=== PATIENT | male | born 1990 | race Caucasian/White ===

== ENCOUNTER 2018-12-08 17:50 | Emergency (ER) | payer OTHER, MEDICAID ==
[2018-12-08 20:57] LABS: ADD MAN DIFF? NO
[2018-12-08 20:59] LABS: WHITE BLOOD COUNT 12.6 10^3/ul (4.8-10.8)
[2018-12-08 20:59] LABS: BASOPHIL # 0.1 10^3/ul (0.0-0.1); BASOPHILS % 0.6 % (0.0-2.0); EOSINOPHILS # 0.3 10^3/ul (0.0-0.5); HEMATOCRIT 45.7 % (42.0-52.0); HEMOGLOBIN 15.4 g/dl (14.0-18.0); LYMPHOCYTES # 2.7 10^3/ul (0.8-2.9); LYMPHOCYTES % 21.5 % (15.0-51.0); MEAN CORPUSCULAR HEMOGLOBIN 30.1 pg (29.0-33.0); MEAN CORPUSCULAR HGB CONC 33.7 g/dl (32.0-37.0); MEAN CORPUSCULAR VOLUME 89.4 fl (82.0-101.0); MEAN PLATELET VOLUME 9.7 fl (7.4-10.4); MONOCYTE # 0.8 10^3/ul (0.3-0.9); MONOCYTES % 6.5 % (0.0-11.0); NEUTROPHIL # 8.7 10^3/ul (1.6-7.5); NEUTROPHILS % 68.8 % (39.0-77.0); PLATELET COUNT 252 10^3/UL (140-415); RED BLOOD COUNT 5.11 10^6/ul (4.70-6.10); RED CELL DISTRIBUTION WIDTH 13.1 % (11.5-14.5)
[2018-12-08] MEDS: ONDANSETRON 4 MG INJ IV (21:07)
[2018-12-08] MEDS: morphine 4 MG/ML VIAL IV (21:08)
[2018-12-08] MEDS: SOD CHLORIDE 0.9% 1,000 ML IV (21:08)
[2018-12-08 21:18] LABS: ALANINE AMINOTRANSFERASE 49 IU/L (13-69); ALBUMIN/GLOBULIN RATIO 1.14; ALKALINE PHOSPHATASE 77 IU/L (42-121); ANION GAP 5 (5-13); ASPARTATE AMINO TRANSFERASE 26 IU/L (15-46); BILIRUBIN,INDIRECT 0.6 mg/dl (0-1.1); BILIRUBIN,TOTAL 0.6 mg/dl (0.2-1.3); BLOOD UREA NITROGEN 8 mg/dl (7-20); CARBON DIOXIDE 30 mmol/L (21-31); CHLORIDE 105 mmol/L (97-110); CREATININE 0.87 mg/dl (0.61-1.24); Estimated GFR > 60 mL/min (>60); GLUCOSE 93 mg/dl (70-220); POTASSIUM 3.9 mmol/L (3.5-5.1); SODIUM 140 mmol/L (135-144); TOTAL PROTEIN 7.5 g/dl (6.1-8.1)
[2018-12-08 21:40] LABS: AMYLASE 46 U/L (11-123)
[2018-12-08 21:40] LABS: LIPASE 29 U/L (23-300)
[2018-12-08 22:15] LABS: LACTIC ACID 0.9 mmol/L (0.5-2.0)
[2018-12-08 22:38] LABS: ADD UMIC YES; UR ASCORBIC ACID NEGATIVE (NEGATIVE); UR BILIRUBIN (Dip) NEGATIVE (NEGATIVE); UR BLOOD (Dip) 1+ mg/dL (NEGATIVE); UR CLARITY CLEAR (CLEAR); UR COLOR AMBER (YELLOW); UR GLUCOSE (Dip) NEGATIVE (NEGATIVE); UR KETONES (Dip) NEGATIVE (NEGATIVE); UR LEUKOCYTE ESTERASE (Dip) NEGATIVE Leu/ul (NEGATIVE); UR NITRITE (Dip) NEGATIVE (NEGATIVE); UR RBC 13 /HPF (0-5); UR SPECIFIC GRAVITY (Dip) 1.054 (1.003-1.030); UR TOTAL PROTEIN (Dip) NEGATIVE (NEGATIVE); UR UROBILINOGEN (Dip) NEGATIVE (NEGATIVE); UR WBC 3 /HPF (0-5)
[2018-12-08] MEDS: METOCLOPRAMIDE 10 MG INJ IV (22:55)
[2018-12-08] MEDS: HYDROmorphONE 2 MG/ML SYG IV (22:55)
[2018-12-08] MEDS ORDERED: SOD CHLORIDE 0.9% 1,000 ML IV (23:00)
[2018-12-08] MEDS: metroNIDAZOLE 500 MG TAB PO (23:13)
[2018-12-08] MEDS: CIPROFLOXACIN 250 MG TAB PO (23:13)
== END 2018-12-08 23:29 | disposition home or self-care (01) ==
LOC: FTE 23:29
DX: K57.32 Diverticulitis of large intestine without perforation or abscess without bleeding (principal); F17.210 Nicotine dependence, cigarettes, uncomplicated
CPT/HCPCS: 74176; 80053; 81001; 82150; 83605; 83690; 85025; 87040-91; 96374; 96375; 99285-25

== ENCOUNTER 2018-12-14 21:48 | Inpatient (IN) | payer OTHER ==
[2018-12-14 23:04] LABS: ADD MAN DIFF? NO
[2018-12-14] MEDS: KETOROLAC 30 MG INJ IV (23:05)
[2018-12-14] MEDS: ONDANSETRON 4 MG INJ IV (23:05)
[2018-12-14 23:11] LABS: WHITE BLOOD COUNT 12.9 10^3/ul (4.8-10.8)
[2018-12-14 23:11] LABS: BASOPHIL # 0.1 10^3/ul (0.0-0.1); BASOPHILS % 0.6 % (0.0-2.0); EOSINOPHILS # 0.4 10^3/ul (0.0-0.5); EOSINOPHILS % 3.3 % (0.0-7.0); HEMATOCRIT 46.9 % (42.0-52.0); HEMOGLOBIN 15.8 g/dl (14.0-18.0); LYMPHOCYTES # 3.8 10^3/ul (0.8-2.9); LYMPHOCYTES % 29.3 % (15.0-51.0); MEAN CORPUSCULAR HEMOGLOBIN 29.8 pg (29.0-33.0); MEAN CORPUSCULAR HGB CONC 33.7 g/dl (32.0-37.0); MEAN CORPUSCULAR VOLUME 88.5 fl (82.0-101.0); MEAN PLATELET VOLUME 9.5 fl (7.4-10.4); MONOCYTE # 0.7 10^3/ul (0.3-0.9); MONOCYTES % 5.3 % (0.0-11.0); NEUTROPHIL # 7.8 10^3/ul (1.6-7.5); NEUTROPHILS % 60.9 % (39.0-77.0); PLATELET COUNT 314 10^3/UL (140-415)
[2018-12-14 23:14] LABS: URINE BLOOD (Dip) POC Trace-intact (NEGATIVE); URINE GLUCOSE (Dip) POC Negative (NEGATIVE); URINE KETONES (Dip) POC Negative (NEGATIVE); URINE LEUKOCYTE EST (Dip) POC Negative (NEGATIVE); URINE NITRITE (Dip) POC Negative (NEGATIVE); URINE TOTAL PROTEIN POC Negative (NEGATIVE)
[2018-12-14 23:14] LABS: URINE PH (Dip) POC 5.5 (5.0-8.5)
[2018-12-14 23:26] LABS: ALANINE AMINOTRANSFERASE 41 IU/L (13-69); ALBUMIN 3.8 g/dl (3.3-4.9); ALBUMIN/GLOBULIN RATIO 1.08; ALKALINE PHOSPHATASE 68 IU/L (42-121); ANION GAP 8 (5-13); ASPARTATE AMINO TRANSFERASE 26 IU/L (15-46); BILIRUBIN,INDIRECT 0.3 mg/dl (0-1.1); BILIRUBIN,TOTAL 0.3 mg/dl (0.2-1.3); BLOOD UREA NITROGEN 11 mg/dl (7-20); CALCIUM 9.3 mg/dl (8.4-10.2); CARBON DIOXIDE 27 mmol/L (21-31); CHLORIDE 108 mmol/L (97-110); CREATININE 0.64 mg/dl (0.61-1.24); Estimated GFR > 60 mL/min (>60); GLUCOSE 96 mg/dl (70-220); LIPASE 47 U/L (23-300); POTASSIUM 3.5 mmol/L (3.5-5.1); SODIUM 143 mmol/L (135-144); TOTAL PROTEIN 7.3 g/dl (6.1-8.1)
[2018-12-14] MEDS: IOHEXOL 300MG/ML 150 ML BTL (23:45)
[2018-12-14] MEDS: SOD CHLORIDE 0.9% 100 ML (23:45)
[2018-12-15] MEDS: LEVOFLOXACIN 750MG/D5W (PMX) 150 ML IVPB (00:55)
[2018-12-15] MEDS: ONDANSETRON 4 MG INJ IV (01:16)
[2018-12-15] MEDS: metroNIDAZOLE 500 MG/NS (PMX) 100 ML IVPB ×5 (01:16→21:18)
[2018-12-15] MEDS: morphine 4 MG/ML VIAL IV (01:17)
[2018-12-15] MEDS ORDERED: ONDANSETRON 4 MG INJ IV (04:30)
[2018-12-15] MEDS: SOD CHLORIDE 0.9% 1,000 ML IV ×2 (04:41→15:50)
[2018-12-15] MEDS: KETOROLAC 15 MG INJ IV ×3 (04:49→21:24)
[2018-12-15 05:00] LABS: ADD MAN DIFF? NO
[2018-12-15 05:06] LABS: BASOPHIL # 0.1 10^3/ul (0.0-0.1); BASOPHILS % 0.7 % (0.0-2.0); EOSINOPHILS # 0.5 10^3/ul (0.0-0.5); EOSINOPHILS % 3.7 % (0.0-7.0); HEMATOCRIT 44.8 % (42.0-52.0); HEMOGLOBIN 15.2 g/dl (14.0-18.0); LYMPHOCYTES # 3.5 10^3/ul (0.8-2.9); LYMPHOCYTES % 28.1 % (15.0-51.0); MEAN CORPUSCULAR HEMOGLOBIN 30.1 pg (29.0-33.0); MEAN CORPUSCULAR HGB CONC 33.9 g/dl (32.0-37.0); MEAN CORPUSCULAR VOLUME 88.7 fl (82.0-101.0); MEAN PLATELET VOLUME 9.7 fl (7.4-10.4); MONOCYTE # 0.8 10^3/ul (0.3-0.9); MONOCYTES % 6.5 % (0.0-11.0); NEUTROPHIL # 7.4 10^3/ul (1.6-7.5); PLATELET COUNT 309 10^3/UL (140-415); RED BLOOD COUNT 5.05 10^6/ul (4.70-6.10); RED CELL DISTRIBUTION WIDTH 12.9 % (11.5-14.5)
[2018-12-15 05:06] LABS: WHITE BLOOD COUNT 12.4 10^3/ul (4.8-10.8)
[2018-12-15 05:32] LABS: ANION GAP 6 (5-13); BLOOD UREA NITROGEN 11 mg/dl (7-20); CALCIUM 9.1 mg/dl (8.4-10.2); CARBON DIOXIDE 30 mmol/L (21-31); CHLORIDE 107 mmol/L (97-110); CREATININE 0.72 mg/dl (0.61-1.24); Estimated GFR > 60 mL/min (>60); GLUCOSE 94 mg/dl (70-220); POTASSIUM 3.7 mmol/L (3.5-5.1); SODIUM 143 mmol/L (135-144)
[2018-12-15] MEDS: PANTOPRAZOLE 40 MG INJ IV (06:36)
[2018-12-15] MEDS: NICOTINE (14 MG/24 HR) PATCH TRANSDERM (09:19)
[2018-12-15] MEDS: morphine 2 MG INJ IV ×2 (10:10→18:56)
[2018-12-15] MEDS: LEVOFLOXACIN 500MG/D5W (PMX) 100 ML IVPB (22:40)
[2018-12-16] MEDS: morphine 2 MG INJ IV (00:53)
[2018-12-16] MEDS: SOD CHLORIDE 0.9% 1,000 ML IV ×2 (05:24→23:18)
[2018-12-16] MEDS: metroNIDAZOLE 500 MG/NS (PMX) 100 ML IVPB ×3 (05:24→22:18)
[2018-12-16] MEDS: PANTOPRAZOLE 40 MG INJ IV (05:24)
[2018-12-16 05:59] LABS: ADD MAN DIFF? NO
[2018-12-16 06:01] LABS: BASOPHIL # 0.1 10^3/ul (0.0-0.1); BASOPHILS % 0.9 % (0.0-2.0); EOSINOPHILS # 0.4 10^3/ul (0.0-0.5); EOSINOPHILS % 4.2 % (0.0-7.0); HEMATOCRIT 44.1 % (42.0-52.0); HEMOGLOBIN 14.8 g/dl (14.0-18.0); LYMPHOCYTES # 2.8 10^3/ul (0.8-2.9); LYMPHOCYTES % 28.4 % (15.0-51.0); MEAN CORPUSCULAR HEMOGLOBIN 29.8 pg (29.0-33.0); MEAN CORPUSCULAR HGB CONC 33.6 g/dl (32.0-37.0); MEAN CORPUSCULAR VOLUME 88.7 fl (82.0-101.0); MEAN PLATELET VOLUME 9.6 fl (7.4-10.4); MONOCYTE # 0.6 10^3/ul (0.3-0.9); MONOCYTES % 6.4 % (0.0-11.0); NEUTROPHIL # 5.8 10^3/ul (1.6-7.5); NEUTROPHILS % 59.4 % (39.0-77.0); PLATELET COUNT 300 10^3/UL (140-415); RED BLOOD COUNT 4.97 10^6/ul (4.70-6.10)
[2018-12-16 06:01] LABS: WHITE BLOOD COUNT 9.8 10^3/ul (4.8-10.8)
[2018-12-16] MEDS: NICOTINE (14 MG/24 HR) PATCH TRANSDERM (08:54)
[2018-12-16] MEDS: LORAZEPAM 2 MG INJ IV (17:57)
[2018-12-16] MEDS: LEVOFLOXACIN 500MG/D5W (PMX) 100 ML IVPB (22:18)
[2018-12-17] MEDS: LORAZEPAM 2 MG INJ IV ×3 (01:55→22:29)
[2018-12-17] MEDS: morphine 2 MG INJ IV ×2 (03:43→21:35)
[2018-12-17] MEDS: PANTOPRAZOLE 40 MG INJ IV (05:29)
[2018-12-17] MEDS: metroNIDAZOLE 500 MG/NS (PMX) 100 ML IVPB ×3 (05:29→21:29)
[2018-12-17] MEDS: NICOTINE (14 MG/24 HR) PATCH TRANSDERM (08:57)
[2018-12-17] MEDS: LEVOFLOXACIN 500MG/D5W (PMX) 100 ML IVPB (22:29)
[2018-12-18] MEDS: morphine 2 MG INJ IV ×2 (04:02→21:40)
[2018-12-18] MEDS: KETOROLAC 15 MG INJ IV (04:03)
[2018-12-18 05:06] LABS: ADD MAN DIFF? NO
[2018-12-18 05:21] LABS: BASOPHIL # 0.1 10^3/ul (0.0-0.1); BASOPHILS % 0.7 % (0.0-2.0); EOSINOPHILS # 0.4 10^3/ul (0.0-0.5); EOSINOPHILS % 3.3 % (0.0-7.0); HEMATOCRIT 48.5 % (42.0-52.0); HEMOGLOBIN 15.9 g/dl (14.0-18.0); LYMPHOCYTES # 3.2 10^3/ul (0.8-2.9); LYMPHOCYTES % 29.5 % (15.0-51.0); MEAN CORPUSCULAR HEMOGLOBIN 29.4 pg (29.0-33.0); MEAN CORPUSCULAR HGB CONC 32.8 g/dl (32.0-37.0); MEAN CORPUSCULAR VOLUME 89.8 fl (82.0-101.0); MEAN PLATELET VOLUME 9.3 fl (7.4-10.4); MONOCYTE # 0.8 10^3/ul (0.3-0.9); NEUTROPHIL # 6.4 10^3/ul (1.6-7.5); NEUTROPHILS % 58.9 % (39.0-77.0); PLATELET COUNT 296 10^3/UL (140-415)
[2018-12-18 05:21] LABS: WHITE BLOOD COUNT 10.9 10^3/ul (4.8-10.8)
[2018-12-18 05:51] LABS: ANION GAP 7 (5-13); BLOOD UREA NITROGEN 9 mg/dl (7-20); CALCIUM 9.1 mg/dl (8.4-10.2); CARBON DIOXIDE 30 mmol/L (21-31); CHLORIDE 103 mmol/L (97-110); CREATININE 0.79 mg/dl (0.61-1.24); Estimated GFR > 60 mL/min (>60); GLUCOSE 102 mg/dl (70-220); POTASSIUM 3.8 mmol/L (3.5-5.1); SODIUM 140 mmol/L (135-144)
[2018-12-18] MEDS: PANTOPRAZOLE 40 MG INJ IV (06:58)
[2018-12-18] MEDS: metroNIDAZOLE 500 MG/NS (PMX) 100 ML IVPB ×3 (06:58→22:43)
[2018-12-18] MEDS: NICOTINE (14 MG/24 HR) PATCH TRANSDERM (08:38)
[2018-12-18] MEDS: LORAZEPAM 2 MG INJ IV ×2 (10:34→22:18)
[2018-12-18] MEDS: LEVOFLOXACIN 500MG/D5W (PMX) 100 ML IVPB (21:31)
[2018-12-19] MEDS: morphine 2 MG INJ IV ×3 (01:55→13:50)
[2018-12-19 04:58] LABS: ADD MAN DIFF? NO
[2018-12-19 05:18] LABS: BASOPHIL # 0.1 10^3/ul (0.0-0.1); BASOPHILS % 0.7 % (0.0-2.0); EOSINOPHILS # 0.3 10^3/ul (0.0-0.5); EOSINOPHILS % 2.3 % (0.0-7.0); HEMATOCRIT 47.5 % (42.0-52.0); HEMOGLOBIN 15.7 g/dl (14.0-18.0); LYMPHOCYTES # 4.1 10^3/ul (0.8-2.9); LYMPHOCYTES % 29.8 % (15.0-51.0); MEAN CORPUSCULAR HEMOGLOBIN 29.6 pg (29.0-33.0); MEAN CORPUSCULAR HGB CONC 33.1 g/dl (32.0-37.0); MEAN CORPUSCULAR VOLUME 89.6 fl (82.0-101.0); MEAN PLATELET VOLUME 9.7 fl (7.4-10.4); MONOCYTE # 0.8 10^3/ul (0.3-0.9); MONOCYTES % 5.9 % (0.0-11.0); NEUTROPHIL # 8.2 10^3/ul (1.6-7.5); NEUTROPHILS % 60.4 % (39.0-77.0); PLATELET COUNT 308 10^3/UL (140-415)
[2018-12-19 05:18] LABS: WHITE BLOOD COUNT 13.6 10^3/ul (4.8-10.8)
[2018-12-19] MEDS: metroNIDAZOLE 500 MG/NS (PMX) 100 ML IVPB ×3 (05:50→22:47)
[2018-12-19 05:53] LABS: ANION GAP 7 (5-13); BLOOD UREA NITROGEN 15 mg/dl (7-20); CALCIUM 9.3 mg/dl (8.4-10.2); CARBON DIOXIDE 28 mmol/L (21-31); CHLORIDE 104 mmol/L (97-110); CREATININE 0.77 mg/dl (0.61-1.24); Estimated GFR > 60 mL/min (>60); GLUCOSE 95 mg/dl (70-220); POTASSIUM 3.9 mmol/L (3.5-5.1); SODIUM 139 mmol/L (135-144)
[2018-12-19] MEDS: PANTOPRAZOLE 40 MG INJ IV (05:58)
[2018-12-19] MEDS: NICOTINE (14 MG/24 HR) PATCH TRANSDERM (08:48)
[2018-12-19] MEDS: LORAZEPAM 2 MG INJ IV ×2 (08:55→22:54)
[2018-12-19] MEDS: LEVOFLOXACIN 500MG/D5W (PMX) 100 ML IVPB (21:33)
[2018-12-19] MEDS: HYDROmorphONE 0.5 MG/0.5 ML SYG IV (23:17)
[2018-12-20] MEDS: PANTOPRAZOLE 40 MG INJ IV (05:24)
[2018-12-20] MEDS: HYDROmorphONE 0.5 MG/0.5 ML SYG IV ×2 (05:24→10:24)
[2018-12-20] MEDS: metroNIDAZOLE 500 MG/NS (PMX) 100 ML IVPB ×2 (05:30→14:00)
[2018-12-20] MEDS: NICOTINE (14 MG/24 HR) PATCH TRANSDERM (09:04)
[2018-12-20 09:22] LABS: WHITE BLOOD COUNT 12.4 10^3/ul (4.8-10.8)
== END 2018-12-20 15:45 | disposition home or self-care (01) | DRG 392 ==
LOC: FTE 21:48 → MS1 12-15 01:06
DX: K57.32 Diverticulitis of large intestine without perforation or abscess without bleeding (principal); Z68.41 Body mass index [BMI] 40.0-44.9, adult; E66.01 Morbid (severe) obesity due to excess calories; F17.200 Nicotine dependence, unspecified, uncomplicated; G47.30 Sleep apnea, unspecified; K40.20 Bilateral inguinal hernia, without obstruction or gangrene, not specified as recurrent; G89.29 Other chronic pain; M54.5 Low back pain
CPT/HCPCS: 36415; 74177; 80048; 80053; 81003; 83690; 85025; 85048; 94660; 96374; 96375; 99285-25

== ENCOUNTER 2019-01-13 14:46 | Emergency (ER) | payer OTHER ==
[2019-01-13] MEDS: morphine 4 MG/ML VIAL IV (15:22)
[2019-01-13] MEDS: ONDANSETRON 4 MG INJ IV (15:22)
[2019-01-13] MEDS: SOD CHLORIDE 0.9% 1,000 ML IV (15:22)
[2019-01-13 15:28] LABS: ADD MAN DIFF? NO
[2019-01-13 15:36] LABS: ADD UMIC YES; BASOPHIL # 0.1 10^3/ul (0.0-0.1); BASOPHILS % 0.6 % (0.0-2.0); EOSINOPHILS # 0.3 10^3/ul (0.0-0.5); EOSINOPHILS % 2.7 % (0.0-7.0); HEMATOCRIT 52.2 % (42.0-52.0); HEMOGLOBIN 17.4 g/dl (14.0-18.0); LYMPHOCYTES # 3.6 10^3/ul (0.8-2.9); LYMPHOCYTES % 29.6 % (15.0-51.0); MEAN CORPUSCULAR HEMOGLOBIN 30.1 pg (29.0-33.0); MEAN CORPUSCULAR HGB CONC 33.3 g/dl (32.0-37.0); MEAN CORPUSCULAR VOLUME 90.2 fl (82.0-101.0); MEAN PLATELET VOLUME 9.8 fl (7.4-10.4); MONOCYTE # 0.8 10^3/ul (0.3-0.9); MONOCYTES % 6.5 % (0.0-11.0); NEUTROPHIL # 7.1 10^3/ul (1.6-7.5); NEUTROPHILS % 59.4 % (39.0-77.0); PLATELET COUNT 298 10^3/UL (140-415); RED BLOOD COUNT 5.79 10^6/ul (4.70-6.10); RED CELL DISTRIBUTION WIDTH 13.1 % (11.5-14.5); UR ASCORBIC ACID NEGATIVE (NEGATIVE); UR BILIRUBIN (Dip) NEGATIVE (NEGATIVE); UR BLOOD (Dip) 1+ mg/dL (NEGATIVE); UR CLARITY SLIGHTLY CLOUDY (CLEAR); UR COLOR YELLOW (YELLOW); UR GLUCOSE (Dip) NEGATIVE (NEGATIVE); UR KETONES (Dip) NEGATIVE (NEGATIVE); UR LEUKOCYTE ESTERASE (Dip) NEGATIVE Leu/ul (NEGATIVE); UR NITRITE (Dip) NEGATIVE (NEGATIVE); UR RBC 4 /HPF (0-5); UR SPECIFIC GRAVITY (Dip) 1.017 (1.003-1.030); UR SQUAMOUS EPITHELIAL CELL FEW /HPF (FEW); UR TOTAL PROTEIN (Dip) NEGATIVE (NEGATIVE); UR UROBILINOGEN (Dip) NEGATIVE (NEGATIVE); UR WBC 0 /HPF (0-5)
[2019-01-13 15:51] LABS: ALANINE AMINOTRANSFERASE 42 IU/L (13-69); ALBUMIN 4.4 g/dl (3.3-4.9); ALBUMIN/GLOBULIN RATIO 1.25; ALKALINE PHOSPHATASE 79 IU/L (42-121); ANION GAP 9 (5-13); ASPARTATE AMINO TRANSFERASE 21 IU/L (15-46); BILIRUBIN,INDIRECT 0.3 mg/dl (0-1.1); BILIRUBIN,TOTAL 0.3 mg/dl (0.2-1.3); BLOOD UREA NITROGEN 13 mg/dl (7-20); CARBON DIOXIDE 25 mmol/L (21-31); CHLORIDE 106 mmol/L (97-110); CREATININE 0.65 mg/dl (0.61-1.24); Estimated GFR > 60 mL/min (>60); GLUCOSE 141 mg/dl (70-220); LIPASE 43 U/L (23-300); POTASSIUM 4.2 mmol/L (3.5-5.1); SODIUM 140 mmol/L (135-144); TOTAL PROTEIN 7.9 g/dl (6.1-8.1)
[2019-01-13] MEDS: SOD CHLORIDE 0.9% 100 ML (16:21)
[2019-01-13] MEDS: IOHEXOL 300MG/ML 150 ML BTL (16:21)
== END 2019-01-13 16:50 | disposition home or self-care (01) ==
LOC: FTE 14:46
DX: K57.32 Diverticulitis of large intestine without perforation or abscess without bleeding (principal); F17.210 Nicotine dependence, cigarettes, uncomplicated; E66.01 Morbid (severe) obesity due to excess calories; Z68.42 Body mass index [BMI] 45.0-49.9, adult
CPT/HCPCS: 36415; 74177; 80053; 81001; 83690; 85025; 96361; 96374; 96375; 99285-25

== ENCOUNTER 2019-01-27 21:54 | Emergency (ER) | payer OTHER ==
[2019-01-27 23:12] LABS: ADD MAN DIFF? NO
[2019-01-27 23:13] LABS: BASOPHIL # 0.1 10^3/ul (0.0-0.1); BASOPHILS % 0.8 % (0.0-2.0); EOSINOPHILS # 0.3 10^3/ul (0.0-0.5); HEMATOCRIT 49.2 % (42.0-52.0); HEMOGLOBIN 16.3 g/dl (14.0-18.0); LYMPHOCYTES # 3.8 10^3/ul (0.8-2.9); LYMPHOCYTES % 27.4 % (15.0-51.0); MEAN CORPUSCULAR HEMOGLOBIN 30.2 pg (29.0-33.0); MEAN CORPUSCULAR HGB CONC 33.1 g/dl (32.0-37.0); MEAN CORPUSCULAR VOLUME 91.3 fl (82.0-101.0); MEAN PLATELET VOLUME 9.5 fl (7.4-10.4); MONOCYTE # 0.9 10^3/ul (0.3-0.9); MONOCYTES % 6.5 % (0.0-11.0); NEUTROPHIL # 8.5 10^3/ul (1.6-7.5); NEUTROPHILS % 61.8 % (39.0-77.0); PLATELET COUNT 352 10^3/UL (140-415); RED BLOOD COUNT 5.39 10^6/ul (4.70-6.10); RED CELL DISTRIBUTION WIDTH 13.5 % (11.5-14.5)
[2019-01-27 23:13] LABS: WHITE BLOOD COUNT 13.8 10^3/ul (4.8-10.8)
[2019-01-27] MEDS: morphine 10 MG INJ IV (23:31)
[2019-01-27] MEDS: KETOROLAC 30 MG INJ IV (23:31)
[2019-01-27] MEDS: LEVOFLOXACIN 750 MG TABLET PO (23:34)
[2019-01-27] MEDS: metroNIDAZOLE 500 MG TAB PO (23:35)
== END 2019-01-27 23:57 | disposition home or self-care (01) ==
LOC: E/R 21:54
DX: K57.92 Diverticulitis of intestine, part unspecified, without perforation or abscess without bleeding (principal); F17.210 Nicotine dependence, cigarettes, uncomplicated
CPT/HCPCS: 85025; 96374; 96375; 99284-25